=== PATIENT | male | born 1985 ===

== ENCOUNTER 2018-01-20 17:42 | Emergency (ER) | payer SELFPAY ==
[~2018-01-20] VITALS: Ht 193 cm; Wt 113.6 kg
[2018-01-20 17:50] VITALS: BP 146/101
== END 2018-01-20 18:37 | disposition left against medical advice (07) ==
LOC: ER 17:44
DX: Z00.8 Encounter for other general examination (principal); Z53.21 Procedure and treatment not carried out due to patient leaving prior to being seen by health care provider

== ENCOUNTER 2018-01-22 15:17 | Emergency (ER) | payer OTHER ==
[~2018-01-22] VITALS: Ht 195.6 cm; Wt 113.6 kg
[2018-01-22 15:18] VITALS: BP 144/58
[2018-01-22] MEDS ORDERED: HYDROmorphone 1 mg/ml syringe IM ONE (16:00)
[2018-01-22] MEDS ORDERED: ondansetron 4mg rapidly disintigrating tab PO ONE (16:00)
== END 2018-01-22 16:17 | disposition home or self-care (01) ==
LOC: ER 15:17
DX: R07.89 Other chest pain (principal); F17.200 Nicotine dependence, unspecified, uncomplicated; F15.90 Other stimulant use, unspecified, uncomplicated
CPT/HCPCS: 93005; 99283; J1170